=== PATIENT | female | born 1955 | race Caucasian/White ===

== ENCOUNTER → 2024-10-27 | Outpatient (CLI) | payer MEDICARE ==
[2024-10-27] MEDS: REGADENOSON 0.4 MG/5 ML PF SYG IVP ONE (13:41)
--- NOTE | 2024-10-28 08:37 | HMCSR ---
APPROVED REPORT Height: 5 ft 3in Weight: 153 lbs TEST INDICATIONS CAD The imaging protocol used to acquire images was Rest Tc-99m/stress Tc-99m 1 day Consent: The procedure was explained and understood by the patient. Informerd consent was witnessed Lei Ann RN First, low dose rest was performed then high dose stress. RESTING DATA: The resting ekg shows: NSR Rest SPECT myocardial perfusion imaging was performed in supine position 80 minutes following the int ravenous injection of 11.3 mCi of Tc-99 Sestamibi. Time of rest injection: 08:40: Date: 10/27/2024 Time of rest imagin:00: Date: 10/27/2024 PHARMACOLOGIC STRESS: Pharmacologic stress test was performed by injecting regadenoson 0.4 mg IV push followed by the intra venous injection of 32.1 mCi of Tc-99 Sestamibi. Time of stress injection: 10:44: Date: 10/27/2024 Time of stress imagin:10: Date: 10/27/2024 Heart Rate at time of stress injection: 48 bpm. Gated Stress SPECT was performed 108 minutes after stress injection. The images were gated to evaluate regional wall motion and calculate left ventricular ejection fracti on. STRESS DETAILS Reason for Termination: Infusion complete Stress Symptoms: Cough Max HR Achieved: 75 bpm % of APMHR Achieved: 50 Max Blood Pressure: 153/74 mmHg Stress ECG: NSR Conclusion No ischemia No infarct LV ejection fraction 69% Normal variant apical cleft Normal LV wall motion Normal LV size at rest and stress No increased lung uptake
== END | disposition home or self-care (01) ==
LOC: SHCH 08:05
PROVIDERS: ATTEND Internal Medicine Cardiovascular Disease
DX: I25.10 Atherosclerotic heart disease of native coronary artery without angina pectoris (principal); R05.9 Cough, unspecified
CPT/HCPCS: 78452; 93017; J2785; A9500 ×2

== ENCOUNTER → 2025-02-09 | Outpatient (CLI) | payer MEDICARE ==
--- NOTE | 2025-02-10 05:02 | HMCIMG ---
EXAM: CR Lumbar Spine, 4 views. CLINICAL HISTORY: Vertebrogenic lower back pain. COMPARISON: None provided. FINDINGS: Mild levoscoliosis of the lumbosacral spine. No spondylolisthesis in flexion or extension. Mild osteopenia and degenerative disc space narrowing at multiple levels, most pronounced at L3-L4. Normal vertebral body heights. No acute fracture. Atherosclerotic vascular calcifications. IMPRESSION: Mild levoscoliosis of the lumbosacral spine. No spondylolisthesis in flexion or extension. Mild osteopenia and degenerative disc space narrowing at multiple levels, most pronounced at L3-L4. /[place]
--- NOTE | 2025-02-10 07:47 | HMCIMG ---
EXAM: MR Lumbar Spine Without Intravenous Contrast. CLINICAL HISTORY: Pain. TECHNIQUE: Magnetic resonance images of the lumbar spine in multiple planes. CONTRAST: None. COMPARISON: None. FINDINGS: For this examination, spinal levels were labeled assuming five non-rib bearing, lumbar-type vertebrae with the inferior labeled L5. No acute fracture. Mild dextroscoliosis. Normal lordotic curvature. Mild multilevel spondylosis is evident by marginal osteophytes and Schmorl???s nodes. Multilevel disc desiccation noted. Normal vertebral body and disc heights. Mild marrow edema in the inferior endplate of L2 vertebral body. Small hemangioma noted in the S1 vertebral body. Conus medullaris terminates at the T12-L1 level. No abnormal epidural masses. Small perineural cyst at the S2 level. The surrounding soft tissues are unremarkable. Individual spinal levels are described as follows: T12-L1: No disc bulge or herniation. No neural foraminal, lateral recess or spinal canal stenosis. L1-L2: No disc bulge or herniation. No neural foraminal, lateral recess or spinal canal stenosis. L2-L3: No disc bulge or herniation. No neural foraminal, lateral recess or spinal canal stenosis. L3-L4: 3 mm disc osteophyte complex bulge causing mild indentation on the anterior thecal sac. No neural foraminal or lateral recess stenosis. L4-L5: 2 mm disc osteophyte complex bulge causing mild indentation on the anterior thecal sac. No neural foraminal or lateral recess stenosis. L5-S1: 2 mm disc osteophyte complex bulge causing mild indentation on the epidural fat. No neural foraminal or lateral recess stenosis. IMPRESSION: Mild dextroscoliosis. Mild multilevel spondylosis. Mild marrow edema in the inferior endplate of L2 vertebral body, likely degenerative change. Mild indentation on the anterior thecal sac at the L3-L4 and L4-L5 levels. /[place]
== END | disposition home or self-care (01) ==
LOC: RAH 12:31
PROVIDERS: ATTEND Physical Medicine & Rehabilitation
DX: M51.360 Other intervertebral disc degeneration, lumbar region with discogenic back pain only (principal); M51.379 Other intervertebral disc degeneration, lumbosacral region without mention of lumbar back pain or lower extremity pain; M41.87 Other forms of scoliosis, lumbosacral region; M48.061 Spinal stenosis, lumbar region without neurogenic claudication; M43.8X6 Other specified deforming dorsopathies, lumbar region; M47.816 Spondylosis without myelopathy or radiculopathy, lumbar region; M85.88 Other specified disorders of bone density and structure, other site; M25.78 Osteophyte, vertebrae; M51.46 Schmorl's nodes, lumbar region; R60.0 Localized edema; D18.09 Hemangioma of other sites; G96.191 Perineural cyst; R20.2 Paresthesia of skin
CPT/HCPCS: 72114; 72148

== ENCOUNTER → 2025-04-14 | Outpatient (CLI) | payer MEDICARE ==
--- NOTE | 2025-04-14 18:16 | HMCIMG ---
EXAM: CT Cervical Spine Without Intravenous Contrast. CLINICAL HISTORY: 70-year-old female with cervicalgia. TECHNIQUE: Axial computed tomography images of the cervical spine without intravenous contrast. Sagittal and coronal reformations performed. Dose reduction technique was used including one or more of the following: automated exposure control, adjustment of mA and kV according to patient size, and/or iterative reconstruction. CONTRAST: None; COMPARISON: None provided. FINDINGS: BONES: Mild degenerative changes of the cervical spine. No acute fracture or focal osseous lesion. Bony alignment is anatomic. DISCS / DEGENERATIVE CHANGES: No significant disc or facet degeneration. No significant central canal or neural foraminal stenosis. VASCULATURE: Moderate atherosclerotic calcifications in bilateral carotid arteries. Follow-up with ultrasound is recommended. SOFT TISSUES: No prevertebral soft tissue swelling. IMPRESSION: 1. No acute cervical spine fracture or dislocation. 2. Mild degenerative changes of the cervical spine. 3. Moderate atherosclerotic calcifications in bilateral carotid arteries. Follow up with ultrasound. /[place]
--- NOTE | 2025-04-14 18:35 | HMCIMG ---
EXAM: XR Cervical spine, 5 Views total. CLINICAL HISTORY: 70-year-old female with neck pain. COMPARISON: None provided. FINDINGS: BONES: No acute fracture or aggressive appearing osseous lesion. Posterior vertebral body alignment is within normal limits in the cervical spine. DISCS/DEGENERATIVE CHANGES: Moderate degenerative changes of the lower cervical spine. The disc spaces are preserved. SOFT TISSUES: No prevertebral soft tissue swelling evident in the cervical spine. The visualized lungs appear clear. IMPRESSION: 1. No acute abnormality evident in the cervical spine. 2. Moderate degenerative changes of the lower cervical spine. /[place]
[2025-04-15 07:14] LABS: RHEUMATOID ARTHRITIS FACTOR 10.6 IU/mL (<14.0)
[2025-04-16 15:14] LABS: ALBUMIN (PEP) 3.4 g/dL (2.9-4.4)
== END | disposition home or self-care (01) ==
LOC: RAH 13:15
PROVIDERS: ATTEND Physical Medicine & Rehabilitation
DX: M47.812 Spondylosis without myelopathy or radiculopathy, cervical region (principal); I65.23 Occlusion and stenosis of bilateral carotid arteries; M54.2 Cervicalgia; G62.9 Polyneuropathy, unspecified; R53.83 Other fatigue; R20.2 Paresthesia of skin; E55.9 Vitamin D deficiency, unspecified
CPT/HCPCS: 36415; 72050; 72125; 82306; 82607; 82746; 84155; 84165; 85651; 86038; 86140; 86431

== ENCOUNTER → 2025-04-21 | Outpatient (CLI) | payer MEDICARE ==
[2025-04-21 12:46] LABS: IMMATURE GRANULOCYTE ABSOLUTE 0.02 K/uL (0-1); NUCLEATED RED BLOOD CELLS 0.0 % (0.0-0.19); PLATELET COUNT (AUTO) 309 K/uL (130-400); RED BLOOD CELL COUNT(AUTO) 4.05 MIL/uL (4.00-5.50); RED CELL DISTRIBUTION WIDTH 13.2 % (11.0-15.5); WHITE BLOOD COUNT (AUTO) 6.1 K/uL (4.8-10.8)
[2025-04-21 13:03] LABS: ASPARTATE AMINOTRANSFERASE 53.0 U/L (10-37); CREATININE 0.8 mg/dL (0.5-1.0); GLOMERULAR FILTR. RATE CALC 79.0 mL/min (>90); GLUCOSE,RANDOM 94.0 mg/dL (70-105); LDL DIRECT 78.0 mg/dL (0-99); SODIUM SERUM 138.0 mmol/L (136-145); TOTAL PROTEIN, SERUM 6.5 g/dL (6.0-8.3); UREA NITROGEN, BLOOD 12.0 mg/dL (7-18)
[2025-04-22 16:26] LABS: HEPATITIS A IGM ANTIBODY Non-Reactive (Nonreactive); HEPATITIS B CORE IGM ANTIBODY Non-Reactive (Negative)
== END | disposition home or self-care (01) ==
LOC: LAB 11:46
PROVIDERS: ATTEND Family Medicine
DX: I10 Essential (primary) hypertension (principal); E78.5 Hyperlipidemia, unspecified; R73.03 Prediabetes; B18.9 Chronic viral hepatitis, unspecified; Z86.19 Personal history of other infectious and parasitic diseases
CPT/HCPCS: 36415; 80053; 80061; 80074; 83036; 85025

== ENCOUNTER → 2025-04-30 | Outpatient (CLI) | payer MEDICARE ==
[~2025-04-30] MED LIST: GADOTERATE MEGLUMINE 10 MMOL/20 ML VIAL IV ONE
--- NOTE | 2025-04-30 15:48 | HMCIMG ---
INDICATION: Inconclusive prior mammogram TECHNIQUE Precontrast axial T1 and axial T2 fat saturation sequences were obtained. Dynamic postcontrast axial imaging were obtained. Subtraction images and MIP reconstructions were generated. IV Contrast: 20 mL Clariscan COMPARISON Mammograms 02/24/2025 FINDINGS Amount of fibroglandular tissue: Heterogeneous fibroglandular tissue. Background parenchymal enhancement: Minimal. Right breast: No suspicious mass or non-mass enhancement. Fat necrosis is present in the far posterior breast, compatible with surgical changes from prior implant removal. Left breast: No suspicious mass or non-mass enhancement. Lymph nodes: Unremarkable. Other tissues: Small left subpectoral fluid collection measuring up to 4 cm, likely related to recent implant removal. Asymmetric edema within the right posterior breast to include the pectoralis major muscle, favored postsurgical. IMPRESSION No MRI evidence of malignancy. Postsurgical changes from recent implant removal. BI-RADS 2: Benign findings. Recommendation: Continued imaging surveillance per high risk clinical protocol. /[place]
== END | disposition home or self-care (01) ==
LOC: RAH 08:51
PROVIDERS: ATTEND Family Medicine
DX: N64.1 Fat necrosis of breast (principal); R92.8 Other abnormal and inconclusive findings on diagnostic imaging of breast; R60.0 Localized edema
CPT/HCPCS: C8908; A9575; 77049

== ENCOUNTER → 2025-07-21 | Outpatient (CLI) | payer MEDICARE ==
--- NOTE | 2025-07-22 22:24 | HMCIMG ---
STUDY MR right lower extremity without IV contrast, foot CLINICAL HISTORY M79.671 pain in right foot TECHNIQUE Multisequence, multiplanar magnetic resonance images of the right foot were obtained without intravenous contrast COMPARISON None provided FINDINGS Ligaments Medial and lateral collateral ligaments are intact without thickening or tear. The Lisfranc ligament complex is preserved. Tendons The Achilles, flexor, extensor, and peroneal tendons are normal in caliber and signal without tendinosis or tear. No significant peritendinous fluid is present. Bones and osteochondral structures There is focal STIR hyperintense marrow edema along the medial aspect of the talar dome with associated subchondral cystic change, compatible with an osteochondral lesion of the talar dome. Overlying articular cartilage appears mildly irregular in this region without a displaced osteochondral fragment. No acute fracture or aggressive osseous lesion is identified in the remainder of the visualized foot and ankle. Joints and cartilage The tibiotalar, subtalar, midfoot, and forefoot joints are otherwise maintained without significant joint space loss, malalignment, or sizable osteophytes. No large joint effusion is demonstrated. Muscles and soft tissues The visualized intrinsic and extrinsic foot musculature demonstrates normal bulk and signal without focal tear or myositis. No discrete soft tissue mass, ganglion, or organized fluid collection is seen. Sinus tarsi, tarsal tunnel, and plantar fascia The sinus tarsi fat is preserved without edema or mass. The tarsal tunnel contents are unremarkable. The plantar fascia is normal in thickness and signal without evidence of plantar fasciitis or tear. 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 * Otherwise intact ligamentous, tendinous, and osseous structures of the right foot without acute fracture, high-grade tendon tear, or significant degenerative joint disease. /[place]
== END | disposition home or self-care (01) ==
LOC: RAH 14:45
PROVIDERS: ATTEND Physical Medicine & Rehabilitation
DX: M25.871 Other specified joint disorders, right ankle and foot (principal); M79.671 Pain in right foot; R60.0 Localized edema
CPT/HCPCS: 73718